=== PATIENT | male | born 1965 | race African-American/Black ===

== ENCOUNTER 2020-01-29 19:03 | Observation (INO) ==
[2020-01-29] MEDS ORDERED: NARCAN IV ONE (19:08)
[2020-01-29 19:28] LABS: BASO# 0.04 X1000 (0.0-0.2); BASO% 0.5 % (0.0-0.8); EOS# 0.46 X1000 (0.0-0.7); EOS% 5.9 % (0.0-10.0); HEMATOCRIT 38.9 % (42.0-52.0); HEMOGLOBIN 12.3 g/dL (14.0-18.0); IMM GRAN# 0.01 X1000 (0.0-0.04); IMM GRAN% 0.1 % (0.0-0.5); LYMPH# 3.06 X1000 (1.2-3.4); LYMPH% 39.5 % (20.5-51.1); MCH 28.5 PG (27-31); MCHC 31.6 g/dL (33-37); MONO# 0.83 X1000 (0.11-0.59); MONO% 10.7 % (1.7-9.3); MPV 9.8 FL (7.4-10.4); NEUT# 3.35 X1000 (1.4-6.5); NEUT% 43.3 % (42.2-75.2); PLT 318 X1000 (130-400); RBC 4.32 XMIL (4.7-6.1); RDW 13.8 % (11.5-14.5); WBC 7.75 X1000 (4.8-10.8)
[2020-01-29 19:33] LABS: BE -0.8 mmoll (-3.0-3.0); BLOOD TYPE ARTERIAL; HCO3-(ACT) 24.1 mmoll (20.0-26.0); METHB 0.2 % (0.0-1.5); O2(CT) 16.5 mL/dL (15.0-23.0); O2HB 90.3 % (95.0-99.0); PCO2(98.6) 44 mmHg (35-45); PO2(98.6) 101 mmHg (60-100); SAMPLE BLOOD; SAO2 98.9 % (95.0-100.0); THB 12.9 g/dL (11.5-17.4); pH(98.6) 7.36 (7.35-7.45)
[2020-01-29 19:36] LABS: ALLEN TEST NO; MODALITY CANNULA
--- NOTE | 2020-01-29 19:55 | Diag Imaging Result Doc PS360 ---
EXAM: CHEST-PORTABLE 01/29/2020 HISTORY: sob,ams TECHNIQUE: Erect AP portable at 1833 COMMENT: There are calcified granulomatous nodes in the subcarina and left hilum. There is no evidence of acute cardiac or pulmonary disease. There are no previous studies. IMPRESSION: No acute disease. Electronically signed by Erick Nolen 01/29/2020 7:53 PM
[2020-01-29 20:11] LABS: ACETAMINOPHEN < 1.2 ug/mL (10-30); AGAP 16; ALBUMIN 4.5 g/dL (3.5-5.0); ALKALINE PHOSPHATASE 136 U/L (32-122); BUN 13 mg/dL (8-22); CALCIUM 9.5 mg/dL (8.8-10.2); CHLORIDE 99 mmol/L (98-107); COSMO 280; CREATININE 1.3 mg/dL (0.7-1.2); ESTIMATED GFR 49; GLUCOSE 174 mg/dL (70-104); GOT 102 U/L (10-34); GPT 42 U/L (10-44); POTASSIUM 3.6 mmol/L (3.5-5.1); SALICYLATES < 3.00 mg/dL (3-10); SODIUM 138 mmol/L (136-145); TCO2 23 mmol/L (25-35); TOTAL PROTEIN 8.3 g/dL (6.3-8.3)
[2020-01-29 21:13] LABS: UR AMPHETAMINES QUAL PRESUMPTIVE POSITIVE (NONE DETECT); UR BARBITUATES QUAL NONE DETECTED (NONE DETECT); UR BENZODIAZEPIN QUAL NONE DETECTED (NONE DETECT); UR CANNABINOIDS QUAL PRESUMPTIVE POSITIVE (NONE DETECT); UR COCAINE QUAL NONE DETECTED (NONE DETECT); UR METHADONE QUAL NONE DETECTED (NONE DETECT); UR METHAMPHETAMINE QUAL PRESUMPTIVE POSITIVE (NONE DETECT); UR OPIATES QUAL NONE DETECTED (NONE DETECT); UR OXYCODONE QUAL NONE DETECTED (NONE DETECT); UR PCP QUAL NONE DETECTED (NONE DETECT); UR PROPOXYPHENE QUAL NONE DETECTED (NONE DETECT); UR TCA QUAL NONE DETECTED (NONE DETECT)
--- NOTE | 2020-01-29 21:52 | PROVIDER DOCUMENTATION ---
This chart was entered by Lisa Farley Scribe, acting as scribe for Brodie Santa MD. HPI-General Adult - General Chief Complaint: Unresponsive Stated Complaint: UNRESPONSIVE Time Seen by Provider: 01/29/20 19:07 Source: patient Unable to obtain history due to:: altered Allergies/Adverse Reactions: Patient Allergies Allergy/AdvReac Type Severity Reaction Status Date / Time Penicillins Allergy Severe ANAPHYLAXIS Verified 01/30/20 01:31 Home Medications: Home Medication List Medication Instructions Recorded Confirmed Last Taken Type NK [No Home Medications] 01/29/20 01/29/20 Unknown History - History of Present Illness -Gen Adult Nature of Presenting Problems: pt is a black male presenting POV, pt unconscious/unresponsive. bystander reports he witnessed pt walking down the road and collapsed on the ground, bystander was able to get pt in car and brought him to ER, bystander has no pt information. Patient later reports that he was smoking marijuana just before col lapsing. Upon arrival, patient was unresponsive, with slow shallow respirations which rapidly responded to IV Narcan. Patient is now alert and responsive with GCS of 15. Review of Systems - Adult - REVIEW OF SYSTEMS - ADULT ROS:: unobtainable per condition Constitutional: reports: no symptoms reported Eyes: reports: no symptoms reported Ears, Nose, Mouth & Throat: reports: no symptoms reported Cardiovascular: reports: no symptoms reported Respiratory: reports: no symptoms reported Gastrointestinal: reports: no symptoms reported Genitourinary: reports: no symptoms reported Musculoskeletal: reports: no symptoms reported Integumentary: reports: no symptoms reported Neurological: reports: no symptoms reported Psychiatric: reports: no symptoms reported Endocrine: reports: no symptoms reported Hematologic/Lymphatic: reports: no symptoms reported Allergic/Immunologic: reports: no symptoms reported All Other Systems: Reviewed and Negative Past History - Adult - PAST MEDICAL HISTORY-ADULT Review of Records: reports: Old Records Reviewed, Nursing Assessment Review, Medications Reviewed, Social history reviewed & non-contributory. Major Childhood Illnesses: reports: denies history Cardiovascular: reports: denies history Respiratory: reports: denies history Gastrointestinal: reports: denies history Obstetrical/Gynecological: reports: denies history Genitourinary: reports: denies history Musculoskeletal: reports: denies history Neurological: reports: denies history Endocrine/Immune: reports: denies history Other Conditions: reports: denies history - IMMUNIZATION STATUS Childhood Immunizations: See Nurse Assessment Flu Vaccine: See Nurse Assessment - FAMILY HISTORY Family History: reviewed, not pertinent Physical Exam-General - PHYSICAL EXAM-ADULT Exam Limited by: unresponsive Initial Vital Signs Reviewed: Yes - CONSTITUTIONAL General Appearance: thin, obtunded, other (pt clothing wet) - EYES Eyes: other (pupils pinpoint) - HEAD, EARS, NOSE, MOUTH & THROAT HENMT: normocephalic/atraumatic, moist mucous membranes - NECK Neck: supple - RESPIRATORY Respiratory: lungs clear, normal breath sounds, decreased breath sounds (shallow), decreased rate - CARDIOVASCULAR Cardiovascular: normal peripheral pulses, regular rate, rhythm, no edema - GASTROINTESTINAL (ABDOMEN) Abdominal Exam: normal bowel sounds, soft - LYMPHATIC Lymphatic: no adenopathy - MUSCULOSKELETAL Back Exam: normal inspection - SKIN Integumentary: normal color, normal turgor, warm/dry Progress - PLAN OF CARE/RESULTS Progress/Plan/Lab Results: Vital Signs - 8 hr 01/29/20 19:05 Pulse Rate 92 H Respiratory Rate 7 L Blood Pressure 162/95 O2 Sat by Pulse Oximetry 95 Orders Category Date Time Status Cardiac Monitoring DIRECTED Care 01/29/20 19:08 Active FSBS/Accucheck Result NOW Care 01/29/20 19:08 Active NEWS Score >or=5:Order NEWS Bundle S.O. NOW Care 01/29/20 19:11 Active Saline Loc NOW Care 01/29/20 19:09 Active CHEST-PORTABLE [RAD] Stat Exams 01/29/20 19:10 Ordered ABG [RESP] Routine Lab 01/29/20 19:09 Ordered ACETAMINOPHEN [TDM] Stat Lab 01/29/20 19:10 Uncollected ALCOHOL BLOOD Stat Lab 01/29/20 19:09 Uncollected CBC WITH ELECTRONIC DIFF [HEME] Stat Lab 01/29/20 19:09 Ordered CMP [COMPREHENSIVE METABOLIC PANEL] [CHEM] Stat Lab 01/29/20 19:10 Uncollected SALICYLATES [TDM] Stat Lab 01/29/20 19:09 Uncollected Naloxone [Narcan] Med 01/29/20 19:08 Discontinued 2 mg IV NOW ONE Oxygen Device Stat Oth 01/29/20 19:11 Active Pulse Oximetry Stat Oth 01/29/20 19:08 Active EKG [EKG] Stat Ther 01/29/20 19:11 Ordered Result Diagrams: 01/29/20 19:11 01/29/20 19:11 - EKG 1 Time of EKG reading by physician:: 19:06 EKG Read and Signed by:: Brodie Santa EKG Interpretation (*Must complete 3 of following elements*): Abnormal (poss LAE) Rate: 91 Rhythm: SR with premature supraventricular complexes [place]: normal QRS: LVH PA Interval: normal ST Wave: normal Departure - Departure Date of Disposition Decision: 01/30/20 Time of Disposition Decision: 00:13 DIAGNOSIS: Substance abuse Altered mental status Qualifiers: Altered mental status type: unspecified Qualified Code(s): R41.82 - Altered mental status, unspecified Disposition: ADMITTED INPATIENT 09 Certified Medical Emergency: Emergent Condition: Stable - Critical Care Note This patient required my direct & personal management of CC.: Yes Total Time (mins): 121 Critical Care Statement: This patient required my direct personal management to treat or rule out processes, the absence of which, could potentiallly result in sudden, clinically significant life or limb threatening deterioration. Attestation - Physician/ SALLY Attestation Patient care was provided by Advanced Practice Provider:: No The physician spent face to face time with patient:: Yes Advanced Practice Provider documentation review:: Supervising physician onsite and consulted in the evaluation and care of this patient. The physician did have a face to face encounter with the patient. This chart was documented by the indicated scribe, (Lisa Farley, [email or web address]) and accurately reflects the services I performed and decisions made by me, Brodie Santa MD, as attested by the provider's signature.
--- NOTE | 2020-01-30 00:48 | EKG Report ---
Test Performed on : 01/29/2020 7:06:15 PM Test Reason : od Blood Pressure : / mmHG Vent. Rate : 091 BPM Atrial Rate : 091 BPM P-R Int : 156 ms QRS Dur : 092 ms QT Int : 372 ms P-R-T Axes : 069 052 040 degrees QTc Int : 457 ms Sinus rhythm. with premature supraventricular complexes. Possible Left atrial enlargement Left ventricular hypertrophy Abnormal ECG No previous ECGs available Unconfirmed Result
[2020-01-30] MEDS ORDERED: PNEUMOVAX 23 IM ONE (09:00)
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
--- NOTE | 2020-01-30 12:05 | DISCHARGE SUMMARY ---
ADMISSION DATE: 01/29/2020 DISCHARGE DATE: 01/30/2020 HISTORY OF PRESENT ILLNESS: The patient came in with a drug overdose. DISCHARGE DIAGNOSIS: Drug overdose, likely due to amphetamine, methamphetamine. HOSPITAL COURSE: The patient came in, unresponsive. He was observed overnight because initially unresponsive, although he became responsive. No major issues overnight. DISCHARGE MEDICINES: None. Again, discharge diagnosis was methamphetamine overdose. cc: Sunny Jaramillo MD
[2020-01-30 15:52] VITALS: BP 118/67
== END 2020-01-30 17:44 | disposition home or self-care (01) ==
LOC: EDBD → P.ED 19:03 → SUATTDRO 23:35 → INTOOBSV 23:35 → MERGE 23:35 → P.MEDSURG 23:35
PROVIDERS: ATTEND Internal Medicine